=== PATIENT | female | born 1980 | race Caucasian/White ===

== ENCOUNTER 2021-08-01 06:07 | Day surgery (SDC) | payer OTHER ==
[2021-08-01] MEDS ORDERED: CEFAZOLIN 2 GM-D5W BAG** 2 GM/50 ML ML IV SCH (07:30)
[2021-08-01] MEDS ORDERED: Lactated Ringers 1,000 ML IV ONE ×2 (07:33→10:04)
[2021-08-01] MEDS ORDERED: CEFAZOLIN 2 GM-D5W BAG** 2 GM/50 ML ML IV ONE (07:33)
[2021-08-01] MEDS ORDERED: Lactated Ringers 1,000 ML IV SCH (08:00)
[2021-08-01] MEDS ORDERED: Versed 2 MG/2 ML Injection ONE (08:30)
[2021-08-01] MEDS ORDERED: Versed 2 MG/2 ML Injection IV ONE (08:35)
[2021-08-01] MEDS ORDERED: Zemuron 100 MG/10 ML ONE (09:18)
[2021-08-01] MEDS ORDERED: TORAdol 30 mg Injection ONE (09:18)
[2021-08-01] MEDS ORDERED: Decadron 4 MG INJ ONE (09:18)
[2021-08-01] MEDS ORDERED: Zofran 4 MG/2 ML VIAL ONE (09:18)
[2021-08-01] MEDS ORDERED: SUBLIMAZE 100 MCG/2 ML ONE ×3 (09:18→10:33)
[2021-08-01] MEDS ORDERED: DIPRIVAN 200 MG/20 ML IV ONE (09:18)
[2021-08-01] MEDS ORDERED: BRIDION 200MG/2ML IV ONE (09:18)
[2021-08-01] MEDS ORDERED: Xylocaine-Mpf 2% 5 Ml Vial ONE (09:18)
[2021-08-01] MEDS ORDERED: Sensorcaine 0.25% 10 ML ONE (09:30)
[2021-08-01] MEDS ORDERED: Compazine 10 MG/2 ML ONE (10:33)
[2021-08-01] MEDS ORDERED: MORPHINE SULFATE 10 MG/ML ONE (11:10)
[2021-08-01 11:49] VITALS: O2SAT 94
[2021-08-01 12:35] VITALS: BP 105/55; PULSE 80
--- NOTE | 2021-08-02 08:53 | OP ---
SURGERY DATE/TIME: 08/01/2021 0928 PREOPERATIVE DIAGNOSES: 1) Multiparity desiring tubal sterilization. 2) Abnormal uterine bleeding. POSTOPERATIVE DIAGNOSES: 1) Multiparity desiring tubal sterilization. 2) Abnormal uterine bleeding. PROCEDURE: 1) Laparoscopic tubal sterilization via Falope ring application on bilateral tubes with additional bipolar use on right tube. 2) Hysteroscopy D&C with NovaSure ablation. SURGEON: Donovan Grover D.O. [facility] TECHNICAL ARCHITECT: Chace Arnold surgical garment inspector. ANESTHESIA: General. ESTIMATED BLOOD LOSS: Minimal. COMPLICATIONS: None. INDICATIONS: The risks, benefits, indications and alternatives of the procedure were reviewed with the patient prior to the procedure. The patient understood the risk of infection, bleeding, bowel injury, bladder injury, ureteral injury, uterine perforation, pelvic infection, thromboembolic disorder, possible ectopic , possible associated with this surgery. However desired to have the surgery as a possible means to alleviate her current medical condition. DESCRIPTION OF PROCEDURE AND FINDINGS: At this point the patient is taken to the operating room, given general sedation, placed in dorsal lithotomy position, prepped and draped in the usual sterile fashion. A weighted speculum is then placed in the patient's vagina and the anterior lip of the cervix is grasped with a single tooth tenaculum. Endocervical dilators were advanced through the endocervical canal as a means to dilate the cervix and the uterine manipulator was then inserted through the endocervical canal as a means to manipulate the uterus. Attention was then turned to the patient's abdomen where a 5 mm skin incision was made in the umbilical fold. A 5 mm trocar and sleeve were advanced under direct visualization where pneumoperitoneum was obtained with 4 liters of CO2 gas. From this point a survey of the patient's pelvis and abdomen revealed completely normal anatomy with no gross abnormalities. An additional incision was made approximately 2 cm above the symphysis pubis where an 8 mm incision was made and an 8 mm trocar and sleeve were advanced under direct visualization. From this point from that trocar site, the Falope ring applicator was then placed through the trocar site. The uterus lifted with the uterine manipulator and the left fallopian tube was then grasped and a knuckle of tube was caught in the applicator where the Falope ring was released and shown to be in excellent position. There was no bleeding noted on the left tube. The same procedure was performed on the right tube where the right tube was identified at the isthmic region. The Falope ring applicator was introduced onto that site where a knuckle of tube was grasped with the applicator and released and the Falope ring was placed. However there was bleeding that was noted on its site on the isthmic region. From this point the Falope ring applicator was removed from the trocar site and a bipolar was used to coagulate the bleeding on the right tube and was done so and hemostasis was obtained. Suction irrigation was taken place. There was no more bleeding that was noted after coagulation. From this point all instruments were removed from the patient's abdominal region and the incisions were closed with 4-0 Monocryl suture. Attention was then turned to the patient's vaginal region where a weighted speculum was then placed into the patient's vaginal region and the uterine manipulator was removed. Tenaculum was placed on the anterior lip of the cervix and at this point a 5 mm hysteroscope was then inserted through the endocervical canal where visualization of the endometrial lining appeared to be within normal limits with no gross abnormalities that was noted. The hysteroscope was then removed and a curette was then placed into the fundus of the uterus and curettage was performed in all quadrants of the uterus retrieving a mild amount of endometrial tissue. Hemostasis was obtained at this point. From this point the NovaSure was then obtained and placed through the endocervical canal towards the fundal region where a length 6 cm was set with a width of 2.6 cm. The NovaSure machine was turned on for an ablative time of 41 seconds. After complete ablation, the NovaSure was then disengaged and removed from the uterine cavity without complication. From this point all subsequent instruments were removed from the patient's vaginal region. The patient was then taken out of the dorsal lithotomy position, was then taken out of anesthesia and was then taken to the recovery room in stable condition. All instruments and laps were accounted for x2.
== END 2021-08-01 12:30 | disposition home or self-care (01) ==
LOC: SDC 06:07
PROVIDERS: ATTEND Obstetrics & Gynecology
DX: N93.9 Abnormal uterine and vaginal bleeding, unspecified (principal); Z30.2 Encounter for sterilization
CPT/HCPCS: 84703; 88305; J0690; J1100; J1885; J2250; J2270; J2405; J2704; J3010

== ENCOUNTER 2023-09-03 18:47 | Emergency (ER) | payer OTHER ==
[2023-09-03 19:10] VITALS: TEMP 98.3; O2SAT 98
--- NOTE | 2023-09-03 20:18 | ERPHSYRPT ---
- History of Present Illness Time Seen by Provider: 09/03/23 19:20 Source: patient Patient Subjective Stated Complaint: pt states that 1 year ago she had a piece of wood fell on her wrist. pt states that 2 weeks ago the pain began to hurt again Triage Nursing Assessment: pt ambulated into the er; pt is axo x4; c/o rt wrist pain; pt states 8/10 rt wrist; limited ROM to rt wrist; swelling present to rt hand; strong rt radial pulse; good cap refill to rt hand; skin PDW; no respiratory distress present; hypertensive Physician History: Patient is a 43-year-old female presents to our ED with complaints of acute on chronic right wrist pain. Patient states she injured her wrist about a year ago. Patient states she hit her wrist with a heavy piece of wood. Since then she has been experiencing intermittent pain. Patient's current pain started 2 weeks ago and has got progressively worse. Patient states she does a lot of repetitive movements. 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 Pain is localized however she occasionally feels numbness to her fingers. No recent trauma. No chest pain or shortness of breath. No nausea vomiting or diaphoresis. Symptoms are moderate in intensity. Patient states he is otherwise healthy. She voices no other complaints or concerns at this time. Portions of this note were created with voice recognition technology. There may be grammatical, spelling, punctuation or sound alike errors Occurred: other (2 weeks) Method of Injury: unknown (Likely repetitive motion) Quality: constant Severity of Pain-Max: moderate Severity of Pain-Current: mild Extremities Pain Location: wrist: right Modifying Factors: Improves With: movement Associated Symptoms: none, No chills, No fever, No nausea, No short of breath Allergies/Adverse Reactions: acetaminophen [From Vicodin] Allergy (Verified 09/03/23 18:55) Hives hydrocodone [From Vicodin] Allergy (Verified 09/03/23 18:55) Hives latex Adverse Reaction (Verified 09/03/23 18:55) Hives Latex, Natural Rubber Adverse Reaction (Verified 09/03/23 18:55) Hives Hx Tetanus, Diphtheria Vaccination/Date Given: Yes Hx Influenza Vaccination/Date Given: No Hx Pneumococcal Vaccination/Date Given: No Travel Risk - International Travel Have you traveled outside of the country in past 3 weeks: No - Coronavirus Screening Are you exhibiting any of the following symptoms?: No Close contact with a COVID-19 positive Pt in past 14-21 Days: No - Vaccine Status Have you recieved a Covid-19 vaccination: No - Review of Systems Constitutional: No Symptoms, No Fever, No Chills Eyes: No Symptoms Ears, Nose, & Throat: No Symptoms Respiratory: No Symptoms, No Cough, No Dyspnea Cardiac: No Symptoms, No Chest Pain, No Edema, No Syncope Abdominal/Gastrointestinal: No Symptoms, No Abdominal Pain, No Nausea, No V omiting, No Diarrhea Genitourinary Symptoms: No Symptoms, No Dysuria Musculoskeletal: No Symptoms, No Back Pain, No Neck Pain Skin: No Symptoms, No Rash Neurological: No Symptoms, No Dizziness, No Focal Weakness, No Sensory Changes Psychological: No Symptoms Endocrine: No Symptoms Hematologic/Lymphatic: No Symptoms Immunological/Allergic: No Symptoms All Other Systems: Reviewed and Negative - Past Medical History Pertinent Past Medical History: Yes Neurological History: No Pertinent History ENT History: No Pertinent History Cardiac History: No Pertinent History Respiratory History: No Pertinent History Endocrine Medical History: No Pertinent History Musculoskeletal History: No Pertinent History GI Medical History: No Pertinent History History: No Pertinent History Psycho-Social History: No Pertinent History Female Reproductive Disorders: Menstrual Problems Other Medical History: DUB - Past Surgical History Past Surgical History: Yes Neuro Surgical History: No Pertinent History Cardiac: No Pertinent History Respiratory: No Pertinent History Gastrointestinal: No Pertinent History Genitourinary: No Pertinent History Musculoskeletal: No Pertinent History Female Surgical History: No Pertinent History Other Surgical History: no surgery - Social History Smoking Status: Current every day smoker How long have you smoked: age 18 Exposure to second hand smoke: Yes Drug Use: none Patient Lives Alone: No - Female History Hx Now: No - Nursing Vital Signs Nursing Vital Signs: Initial Vital Signs Temperature 98.3 F 09/03/23 18:56 Pulse Rate 95 H 09/03/23 18:56 Respiratory Rate 18 09/03/23 18:56 Blood Pressure 145/69 09/03/23 18:56 O2 Sat by Pulse Oximetry 98 09/03/23 18:56 Pain Scale Pain Intensity 8 - Physical Exam General Appearance: no apparent distress, alert Eyes, Ears, Nose, Throat Exam: moist mucous membranes Neck Exam: non-tender, supple Cardiovascular/Respiratory Exam: chest non-tender, normal breath sounds, regular rate/rhythm, no respiratory distress Abdominal Exam: non-tender, No guarding Back Exam: normal inspection, No vertebral tenderness Shoulder Exam: normal inspection, non-tender, no evidence of injury, normal ROM Elbow/Forearm Exam: normal inspection, non-tender, no evidence of injury, normal ROM Wrist Exam: limited ROM, soft tissue tenderness (Involved extremities neurovascular tact distally compartments are soft cap refill less than 2 seconds. Radial pulse palpable.) Hand Exam: normal inspection Neuro/Tendon Exam: normal sensation, normal motor functions Mental Status Exam: alert, oriented x 3, cooperative Skin Exam: normal color, warm, dry SpO2 Interpretation: normal SpO2: 98 O2 Delivery: Room Air - Course Nursing assessment & vital signs reviewed: Yes - Radiology Exams Wrist X-ray Interpretation: Reviewed by me (No fracture or dislocation) Ordered Tests: Active Orders 24 hr Category Date Time Status WRIST (MIN 3 VIEWS) Stat Exams 09/03/23 19:13 Taken Medication Summary Discontinued Medications Generic Name Dose Route Start Last Admin Trade Name Freq PRN Reason Stop Dose Admin Ketorolac Tromethamine 60 mg 09/03/23 20:17 Ketorolac Tromethamine 30 Mg/Ml Inj IM 09/03/23 20:18 STAT ONE - Progress Progress: improved Progress Note: 43-year-old female presents emergency department for evaluation of acute on chronic right wrist pain. Physical exam suggestive of carpal tunnel syndrome syndrome. X-ray negative for fracture dislocation. Involved extremities neuro vascular tact distally. Patient received IM Toradol as well as a wrist splint. Patient referred to orthopedics for follow-up tomorrow. Portions of this note were created with voice recognition technology. There may be grammatical, spelling, punctuation or sound alike errors Complexity problem addressed is moderate acute complicated No critical care time Complexity of data reviewed and analyzed is moderate. Drs. Davis reviewed the x-ray of the right wrist. Risk of complication and or risk of morbidity/mortality patient management is moderate. Prescription for Toradol forwarded to patient's pharmacy. Vital stable. Time spent to discharge patient is approximately 20 minutes. Plan of care established for shared decision making. No social determinants of health present impede follow-up. Portions of this note were created with voice recognition technology. There may be grammatical, spelling, punctuation or sound alike errors 09/03/23 20:26 09/03/23 20:27 Counseled pt/family regarding: diagnosis, need for follow-up, rad results - Departure Departure Disposition: Home Clinical Impression: Carpal tunnel syndrome, Wrist pain Condition: Stable Critical Care Time: No Referrals: JASSI JOHN DO [Primary Care Provider] - Follow up/PCP as directed Additional Instructions: Discharge/Care Plan YORDY KILLIAN was seen on 09/03/23 in the Emergency Room. The patient was counseled regarding Diagnosis,Lab results, Imaging studies, need for follow up and when to return to the Emergency Room. Prescriptions given: Discharge Note I have spoken with the patient and/or caregivers. I have explained the patient's condition, diagnosis and treatment plan based on the information available to me at this time. I have answered the patient's and/or caregiver's questions and addressed any concerns. The patient and/or caregivers have as good understanding of the patient's diagnosis, condition and treatment plan as can be expected at this point. The vital signs have been stable. The patient's condition is stable and appropriate for discharge from the emergency department. The patient will pursue further outpatient evaluation with the primary care physician or other designated or consulting physician as outlined in the discharge instructions. The patient and/or caregivers are agreeable to this plan of care and follow-up instructions have been explained in detail. The patient and/or caregivers have received these instruction. The patient/and or caregivers are aware that any significant change in condition or worsening of symptoms should prompt an immediate return to this or the closest emergency department or call 911. Prescriptions: Ketorolac Trometh 10 mg Tab [TORAdol 10 MG TABLET] 10 mg PO TID 5 Days #15 tablet Outpatient Orders: Ortho Referral Time Frame: 1 Day, Facility: [facility], Location: ORTHO CLINIC
[2023-09-03] MEDS ORDERED: TORAdol 30 mg Injection ONE (20:21)
[2023-09-03] MEDS: TORAdol 30 mg Injection IM ONE (20:29)
[2023-09-03 20:52] VITALS: BP 116/69; PULSE 88; RESP 14
--- NOTE | 2023-09-04 08:48 | XRAY ---
Indication: Pain. Comparison: None 3 view right wrist demonstrates radiocarpal joint space narrowing. No other bony, articular, or soft tissue abnormalities.
== END 2023-09-03 20:53 | disposition home or self-care (01) ==
LOC: ED 18:47
DX: G56.01 Carpal tunnel syndrome, right upper limb (principal); M25.531 Pain in right wrist; F17.200 Nicotine dependence, unspecified, uncomplicated
CPT/HCPCS: 73110; 96372; 99283; J1885; L3908

== ENCOUNTER 2024-10-19 16:55 | Emergency (ER) | payer OTHER ==
[2024-10-19 17:17] VITALS: RESP 20; TEMP 97.6
--- NOTE | 2024-10-19 18:23 | ERPHSYRPT ---
- History of Present Illness Source: patient Exam Limitations: no limitations Patient Subjective Stated Complaint: pt states that she has had a headache for the last week. 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 Start about 3 days ago. It started in her maxillary sinuses. It then moved to her frontal sinuses. She says it feels a pressure and pain. There is tenderness with palpation and percussion of her sinuses especially on the right side. She said when she leans forward it gets painful. She says she feels a lot of pressure. If she does not have any nausea or vomiting. It was not a thunderclap onset has been gradual. She does not have a history of headaches. The headache is mainly confined to the front of the head and the sinus areas. There is been no trauma. She does not have any other complaints worrisome for a intracranial hemorrhage.She says the pain is pretty persistent. She describes it as a sharp and burning pressure. Allergies/Adverse Reactions: acetaminophen [From Vicodin] Allergy (Verified 10/19/24 17:08) Hives hydrocodone [From Vicodin] Allergy (Verified 10/19/24 17:08) Hives latex Adverse Reaction (Verified 10/19/24 17:08) Hives Latex, Natural Rubber Adverse Reaction (Verified 10/19/24 17:08) Hives Hx Tetanus, Diphtheria Vaccination/Date Given: No Hx Influenza Vaccination/Date Given: No Hx Pneumococcal Vaccination/Date Given: No Travel Risk - International Travel Have you traveled outside of the country in past 3 weeks: No - Emerging Infectious Disease Are you exhibiting symptoms associated with any current EIDs: Yes Symptoms: Headaches/Body Aches/ - Review of Systems Constitutional: No Symptoms Eyes: No Symptoms Ears, Nose, & Throat: No Symptoms Skin: No Symptoms Neurological: Headache Psychological: No Symptoms Endocrine: No Symptoms All Other Systems: Reviewed and Negative - Past Medical History Pertinent Past Medical History: Yes Neurological History: No Pertinent History ENT History: No Pertinent History Cardiac History: No Pertinent History Respiratory History: No Pertinent History Endocrine Medical History: No Pertinent History Musculoskeletal History: No Pertinent History GI Medical History: No Pertinent History History: No Pertinent History Psycho-Social History: No Pertinent History Female Reproductive Disorders: Menstrual Problems Other Medical History: DUB - Past Surgical History Past Surgical History: Yes Neuro Surgical History: No Pertinent History Cardiac: No Pertinent History Respiratory: No Pertinent History Gastrointestinal: No Pertinent History Genitourinary: No Pertinent History Musculoskeletal: No Pertinent History Female Surgical History: No Pertinent History Other Surgical History: no surgery - Female History Hx Last Menstrual Period: 10/12/24 Hx Now: No - Social History Smoking Status: Current every day smoker How long have you smoked: age 18 Exposure to second hand smoke: Yes Drug Use: none - Social Determinants of Health Will the patient participate in the screening: Yes Do you worry about a steady place to live?: No Do you have any problems with any of the following?: No known problems In the past 12 months,have you had to go without utilities?: No Transportation Issues: No Has anyone in your support network made you feel unsafe?: No Have you or anyone in your house had to go w/o enough food: No - Nursing Vital Signs Nursing Vital Signs: Initial Vital Signs Pulse Rate 83 10/19/24 17:08 Blood Pressure 139/90 10/19/24 17:08 O2 Sat by Pulse Oximetry 97 10/19/24 17:08 Pain Scale Pain Intensity 7 - Physical Exam General Appearance: no apparent distress Eye Exam: PERRL/EOMI Ears, Nose, Throat Exam: normal ENT inspection, other (Tenderness in the frontal and maxillary sinuses especially on the right.) Neck Exam: normal inspection, non-tender Respiratory Exam: normal breath sounds Mental Status Exam: alert, oriented x 3 measurement specialist Exam: normal hearing, normal speech, PERRL Coordination/Gait Exam: normal gait Motor/Sensory Exam: no motor deficit, no sensory deficit, no pronator drift Skin Exam: normal color SpO2: 98 Ordered Tests: Active Orders 24 hr Category Date Time Status HEAD WITHOUT CONTRAST [CT] Stat Exams 10/19/24 17:12 Taken SINUSES WITHOUT CONTRAST [CT] Stat Exams 10/19/24 17:12 Taken Medication Summary Generic Name Dose Route Start Last Admin Trade Name Freq PRN Reason Stop Dose Admin Sodium Chloride 1,000 mls @ 999 mls/hr 10/19/24 18:15 10/19/24 18:40 Sodium Chloride 0.9% 1000 Ml IV 10/19/24 19:15 999 mls/hr .[id number] STA Administration Discontinued Medications Generic Name Dose Route Start Last Admin Trade Name Oscar PRN Reason Stop Dose Admin Sodium Chloride Confirm 10/19/24 18:33 Sodium Chloride 0.9% 1000 Ml Administered 10/19/24 18:34 Dose 1,000 mls @ ud .ROUTE .STK-MED ONE Ketorolac Tromethamine 30 mg 10/19/24 18:11 10/19/24 18:29 Ketorolac Tromethamine 30 Mg/Ml Inj IV 10/19/24 18:12 Not Given STAT ONE Morphine Sulfate 6 mg 10/19/24 18:19 10/19/24 18:30 Morphine Sulfate 10 Mg/Ml Injection IM 10/19/24 18:20 Not Given STAT ONE Morphine Sulfate 6 mg 10/19/24 18:31 10/19/24 18:43 Morphine Sulfate 10 Mg/Ml Injection IV 10/19/24 18:32 6 mg STAT ONE Administration Morphine Sulfate Confirm 10/19/24 18:33 Morphine Sulfate 10 Mg/Ml Injection Administered 10/19/24 18:34 Dose 10 mg .ROUTE .STK-MED ONE Ondansetron HCl 4 mg 10/19/24 18:15 10/19/24 18:41 Ondansetron Hcl 4 Mg/2 Ml Vial IV 10/19/24 18:16 4 mg STAT ONE Administration Ondansetron HCl 8 mg 10/19/24 18:19 10/19/24 18:29 Zofran 4 Mg/Udtablet Orally Disintegrating PO 10/19/24 18:20 Not Given STAT ONE Ondansetron HCl Confirm 10/19/24 18:33 Ondansetron Hcl 4 Mg/2 Ml Vial Administered 10/19/24 18:34 Dose 4 mg .ROUTE .STK-MED ONE - Progress Progress: improved Progress Note: Patient was stable throughout stay. I did not see any signs or symptoms on physical exam and history of subarachnoid hemorrhage. There is no thunderclap send the worst headache of her life. She has no seizure activity or anything like that. From the history it seems most clearly to be a sinus type headache. I am going to get a CT of her sinuses and head to rule out any sinus or intracranial pathology.CT of the sinuses and head showed moderate right sinusitis. That is mainly where her pain and pressure is. I went to start her on some amoxicillin for 10 days and give her some Toradol for the pain and she is to take ibuprofen as well 10/19/24 18:22 10/19/24 18:34 Medical Desision Making - Risk of complications Minimal Risk: Minimal risk of morbidity - Departure Departure Disposition: Extended Care Facility Clinical Impression: Sinus headache Condition: Stable Critical Care Time: No Referrals: JASSI JOHN DO [Primary Care Provider, [facility]] - Follow up/PCP as directed Instructions: Headache, Adult (DC) Prescriptions: Ketorolac Trometh 10 mg Tab [TORAdol 10 MG TABLET] 10 mg PO Q6H PRN PRN #20 tablet PRN Reason: Pain Amoxicillin 875 mg PO BID #20 tablet
[2024-10-19] MEDS: TORAdol 30 mg Injection IV ONE (18:29)
[2024-10-19] MEDS: ZOFRAN ODT 4 MG PO ONE (18:29)
[2024-10-19] MEDS: MORPHINE SULFATE 10 MG/ML IM ONE (18:30)
[2024-10-19] MEDS ORDERED: Zofran 4 MG/2 ML VIAL ONE (18:33)
[2024-10-19] MEDS ORDERED: Sodium Chloride 0.9% 1000 ML 1,000 ML ONE (18:33)
[2024-10-19] MEDS ORDERED: MORPHINE SULFATE 10 MG/ML ONE (18:33)
[2024-10-19] MEDS: Sodium Chloride 0.9% 1000 ML 1,000 ML IV STA (18:40)
[2024-10-19] MEDS: Zofran 4 MG/2 ML VIAL IV ONE (18:41)
[2024-10-19] MEDS: MORPHINE SULFATE 10 MG/ML IV ONE (18:43)
[2024-10-19 19:07] VITALS: PULSE 83
[2024-10-19 19:48] VITALS: BP 134/74; O2SAT 100
--- NOTE | 2024-10-20 08:41 | XRAY ---
Indication: Sinus pain 1 week. Multiple contiguous axial images obtained through the head without contrast. Comparison: None Age-appropriate global atrophy and minimal periventricular degenerative micro-ischemia bilaterally. No acute intracranial hemorrhage, abnormal extra-axial fluid collection, or mass effect. Fourth ventricle is midline without hydrocephalus. Painter-white matter differentiation preserved. Bony calvarium intact. Moderate mucosal thickening right sphenoid sinus with fluid leveling. Remaining visualized paranasal sinuses and mastoid air cells are clear. Impression: Atrophy and degenerative micro-ischemia within normal limits. Right sphenoid sinus disease. Remaining CT head without contrast exam is negative.
--- NOTE | 2024-10-20 08:43 | XRAY ---
Indication: Sinus pain 1 week. Multiple contiguous axial images obtained through the paranasal sinuses. Sagittal and coronal reformatted images obtained. Comparison: None Patient is edentulous. Moderate mucosal thickening right sphenoid sinus with fluid leveling. Remaining paranasal sinuses, ostiomeatal units, and nasal passages are clear. Incidental minimal nasoseptal deviation to the right. No acute fracture, suspicious bony lesions, or osseous destructive process. Visualized mastoid air cells are clear. Visualized noncontrasted soft tissues including orbits are unremarkable. CT head reported separately. Impression: Right sphenoid sinus disease and minimal nasoseptal deviation. Remaining CT sinuses negative.
== END 2024-10-19 19:51 | disposition home or self-care (01) ==
LOC: ED 16:55
DX: J32.9 Chronic sinusitis, unspecified (principal); R51.9 Headache, unspecified; Z79.899 Other long term (current) drug therapy; Z72.0 Tobacco use
CPT/HCPCS: 70450; 70486; 96361; 96374; 96375; 99284; J2270; J2405